=== PATIENT | male | born 1970 | race Caucasian/White ===

== ENCOUNTER → 2023-12-30 | Outpatient (CLI) | payer OTHER ==
[2023-12-30 12:57] LABS: FREE T4 (FREE THYROXINE) 1.59 ng/dL (0.76-1.46); THYROID STIMULATING HORMONE 0.15 uIU/mL (0.36-3.74)
== END | disposition home or self-care (01) ==
LOC: MSR 10:47
PROVIDERS: ATTEND Chiropractor
DX: M47.817 Spondylosis without myelopathy or radiculopathy, lumbosacral region (principal); M47.814 Spondylosis without myelopathy or radiculopathy, thoracic region; E03.9 Hypothyroidism, unspecified; M48.061 Spinal stenosis, lumbar region without neurogenic claudication
CPT/HCPCS: 72070; 72100; 73503; 84439; 84443; 84481; 93005; 93306